=== PATIENT | female | born 1945 | race Caucasian/White ===

== ENCOUNTER 2024-07-20 07:16 | Inpatient (IN) | payer MEDICARE, OTHER ==
[2024-07-15 10:51] LABS: BILIRUBIN,URINE NEGATIVE (Neg); CLARITY,URINE CLEAR (Clear); COLOR,URINE YELLOW (Yellow); GLUCOSE, URINE NEGATIVE (Neg); KETONES,URINE NEGATIVE (Neg); LEUKOCYTE ESTERASE ,URINE NEGATIVE (Neg); NITRITES, URINE NEGATIVE (Neg); OCCULT BLOOD,URINE NEGATIVE (Neg); PH,URINE 6.5 (4.8-8.0); PROTEIN,URINE NEGATIVE (Neg); UROBILINOGEN,URINE 0.2 E.U/dL (0.2-1.0)
[2024-07-15 10:52] LABS: BASOPHILS % (AUTO) 0.7 % (0-1); EOSINOPHILS # (AUTO) 0.2 X10'3 (0-0.9); EOSINOPHILS % (AUTO) 2.5 % (0-6); LYMPHOCYTES # (AUTO) 0.6 X10'3 (1.1-4.8); LYMPHOCYTES % (AUTO) 8.9 % (21-51); MEAN CORPUSCULAR HGB CONC 32.4 g/dL (33.0-36.5); MEAN CORPUSCULAR VOLUME 92.6 FL (78-98); MEAN PLATELET VOLUME 8.1 FL (7.4-10.4); MONOCYTES # (AUTO) 0.5 X10'3 (0-0.9); MONOCYTES % (AUTO) 7.5 % (2-12); NEUTROPHILS # (AUTO) 5.2 X10'3 (1.8-7.7); NEUTROPHILS % (AUTO) 80.4 % (42-75); PRE OP HEMATOCRIT 34.5 % (35.0-45.0); PRE OP HEMOGLOBIN 11.2 g/dL (12.0-16.0); PRE OP PLATELET COUNT 175 X10'3 (140-440); PRE OP WHITE BLOOD COUNT 6.4 10'3 (4.8-10.8); RED BLOOD COUNT 3.73 X10'6 (4.20-5.60); RED CELL DISTRIBUTION WIDTH 17.1 % (11.5-14.5)
[2024-07-15 11:14] LABS: UA COLLECTION TYPE CLN CATCH MIDSTREAM
[2024-07-15 11:21] LABS: ALBUMIN 3.6 G/DL (3.4-5.0); ALKALINE PHOSPHATASE 87 IU/L (46-116); BLOOD UREA NITROGEN 16 MG/DL (7-18); BUN/CREATININE RATIO 18.8 (10.0-20.0); CALCIUM 9.3 MG/DL (8.5-10.1); CHLORIDE 103 MMOL/L (99-107); CREATININE 0.85 MG/DL (0.40-0.90); PRE OP ALT 22 U/L (30-65); PRE OP ANION GAP 4 (8-16); PRE OP AST 13 U/L (10-37); PRE OP BILIRUB, TOTAL 0.6 MG/DL (0.0-1.0); PRE OP GLUCOSE 85 MG/DL (70-104); PRE OP POTASSIUM 4.8 MMOL/L (3.4-5.1); PRE OP SODIUM 139 MMOL/L (135-145); THYROID STIMULATING HORMONE 1.49 ulU/ml (0.34-4.50); TOTAL CARBON DIOXIDE 31.8 MMOL/L (24-32); TOTAL PROTEIN 7.1 G/DL (6.4-8.2); eGFR 65 ML/MIN
[2024-07-15 13:05] LABS: PRE OP INR 1.1 INR; PRE OP PROTIME 11.2 SECONDS (9.0-12.0)
[~2024-07-20] VITALS: Ht 152.4 cm; Wt 76.9 kg
[2024-07-20] VITALS (25 sets, daily range): BP systolic 100–138; BP diastolic 33–86; PULSE 54–94; RESP 13–18; TEMP 96.1–97.3; O2SAT 90–100
[~2024-07-20 07:16] MED LIST: APIX5TAB3 PO; ATOR10TA70 PO; DICL100G59 TOP; DICL100T85 PO; DILT60TA35 PO; FIBER PO; FLEC50TA10 PO; FOLI1TAB27 PO; GABA-1405 PO; HYDR200T73 PO; LEVO100T46 PO; LOSA100T58 PO; METH2.5T PO; OSC500T PO; PANT40TA54 PO; POTA-208 PO; PRED1TAB PO; ondansetron/PF 4mg/2ml inj IV PRN; protamine sulfate 10mg/ml inj. ONE
[2024-07-20] MEDS: ringers solution, lacted 1,000 ML IV SCH ×2 (08:19→08:20)
[2024-07-20] MEDS: famotidine 20mg tablet PO ONE (08:19)
[2024-07-20] MEDS ORDERED: ondansetron/PF 4mg/2ml inj IV PRN ×2 (08:20→10:55)
[2024-07-20] MEDS ORDERED: meperidine/PF 25mg/ml syringe IV PRN (08:20)
[2024-07-20] MEDS ORDERED: proCHLORperazine 10 MG/2 ml inj IV PRN ×2 (08:20→10:55)
[2024-07-20] MEDS ORDERED: fentaNYL/PF 50MCG/1 ML 2ML syringe IV PRN ×2 (08:20)
[2024-07-20] MEDS ORDERED: labetalol 20mg/4ml (5mg/ml) syringe IV PRN ×2 (08:20→10:55)
[2024-07-20] MEDS ORDERED: HYDROmorphone/PF 0.2 MG/ML SYRINGE IV PRN (08:20)
[2024-07-20] MEDS: acetaminophen 1,000mg/100ml IV 100 ML IV ONE (08:20)
[2024-07-20] MEDS ORDERED: hydrALAZINE 20mg/ml inj. IV PRN ×2 (08:20→10:55)
[2024-07-20] MEDS ORDERED: VANCOMYCIN 1,500MG inj. 1,500 MG in normal saline 500ml IV soln 300 ML IV SCH (08:50)
[2024-07-20] MEDS ORDERED: iohexol 350MG/ML 100ml bottle IV ONE (09:36)
[2024-07-20] MEDS ORDERED: sevoflurane 250ml liquid IH ONE (09:40)
[2024-07-20] MEDS ORDERED: fentaNYL/PF 50MCG/1 ML 2ML syringe ONE (09:55)
[2024-07-20] MEDS ORDERED: midazolam 1 mg/ML 2ml injection ONE (10:13)
[2024-07-20] MEDS ORDERED: heparin 1,000unit/ml 10ml vial 10 ML ONE (10:14)
[2024-07-20] MEDS ORDERED: ceFAZolin 1000mg inj ONE ×2 (10:14)
[2024-07-20] MEDS ORDERED: LIDOcaine 2% (20mg/ml) 5ml vial ONE (10:14)
[2024-07-20] MEDS ORDERED: propofol inj 20 ML IV ONE (10:14)
[2024-07-20] MEDS ORDERED: ondansetron/PF 4mg/2ml inj ONE (10:17)
[2024-07-20] MEDS ORDERED: dexamethasone sod phosphate 4mg/ml inj. ONE (10:17)
[2024-07-20] MEDS ORDERED: magnesium sulf-water 4G/100mL 100 ML IV PRN (10:55)
[2024-07-20] MEDS ORDERED: potassium Cl 20mEq/100mL bag 100 ML IV PRN (10:55)
[2024-07-20] MEDS ORDERED: diphenhydrAMINE 25mg capsule PO PRN (10:55)
[2024-07-20] MEDS ORDERED: potassium Cl 40MEQ/1/2NS 520ml 520 ML IV PRN (10:55)
[2024-07-20] MEDS ORDERED: pantoprazole 40mg Tablet.DR PO PRN (10:55)
[2024-07-20] MEDS ORDERED: potassium CL 10mEq/100ml bag 100 ML IV PRN (10:55)
[2024-07-20] MEDS ORDERED: ALPRAZolam 0.25mg tablet PO PRN (10:55)
[2024-07-20] MEDS ORDERED: docusate sod 100mg capsule PO PRN (10:55)
[2024-07-20] MEDS ORDERED: potassium Cl 40MEQ/270ML bag 250 ML IV PRN (10:55)
[2024-07-20] MEDS ORDERED: potassium Cl 20 mEq SR tablet PO PRN (10:55)
[2024-07-20] MEDS: normal saline 1000ml 1,000 ML IV SCH (10:55)
[2024-07-20] MEDS ORDERED: magnesium sulf-water 2g/50mL 50 ML IV PRN (10:55)
[2024-07-20] MEDS: sod chloride 0.9% 10ml flush syringe IV SCH (16:00)
[2024-07-20] MEDS: VANCOMYCIN 1GM 200ML H20 (PEG) 200 ML IV SCH (21:18)
[2024-07-20] MEDS: gabapentin 400mg capsule PO ONE (23:38)
[2024-07-20] MEDS: acetaminophen 325mg tablet PO PRN (23:40)
[2024-07-21 02:00] VITALS: BP 106/42; PULSE 54; RESP 18; TEMP 97.4; O2SAT 90
[2024-07-21 06:00] VITALS: BP 111/46; PULSE 60; RESP 18; TEMP 96.3; O2SAT 60
[2024-07-21 06:54] LABS: PROTHROMBIN TIME 10.9 SECONDS (9.0-12.0)
[2024-07-21 07:14] LABS: BASOPHILS % (AUTO) 0.1 % (0-1); EOSINOPHILS % (AUTO) 0 % (0-6); HEMATOCRIT 29.7 % (35.0-45.0); HEMOGLOBIN 9.6 g/dl (12.0-16.0); LYMPHOCYTES # (AUTO) 0.4 X10'3 (1.1-4.8); MEAN CORPUSCULAR HEMOGLOBIN 30.5 PG (27.0-31.0); MEAN CORPUSCULAR HGB CONC 32.2 g/dL (33.0-36.5); MEAN CORPUSCULAR VOLUME 94.8 FL (78-98); MEAN PLATELET VOLUME 8.9 FL (7.4-10.4); MONOCYTES # (AUTO) 0.5 X10'3 (0-0.9); MONOCYTES % (AUTO) 6.6 % (2-12); NEUTROPHILS # (AUTO) 6.4 X10'3 (1.8-7.7); NEUTROPHILS % (AUTO) 88.3 % (42-75); PLATELET COUNT 172 X10'3 (140-440); RED BLOOD COUNT 3.13 X10'6 (4.20-5.60); RED CELL DISTRIBUTION WIDTH 17.2 % (11.5-14.5); WHITE BLOOD COUNT 7.2 X10'3 (4.5-11.0)
[2024-07-21 07:21] LABS: ALANINE AMINOTRANSFERASE 16 U/L (12-78); ALBUMIN 2.8 G/DL (3.4-5.0); ALKALINE PHOSPHATASE 74 IU/L (46-116); ANION GAP 8 (8-16); ASPARTATE AMINO TRANSFERASE 11 U/L (10-37); BILIRUBIN,TOTAL 0.4 MG/DL (0.1-1.0); BLOOD UREA NITROGEN 17 MG/DL (7-18); BUN/CREATININE RATIO 23.3 (10.0-20.0); CALCIUM 8.8 MG/DL (8.5-10.1); CHLORIDE 108 MMOL/L (99-107); CREATININE 0.73 MG/DL (0.40-0.90); GLUCOSE 118 MG/DL (70-104); MAGNESIUM 2.2 MG/DL (1.5-2.4); POTASSIUM 4.2 MMOL/L (3.5-5.1); PRO BRAIN NATRIURETIC PEPTIDE 335 PG/ML (0-450); SODIUM 144 MMOL/L (135-145); TOTAL CARBON DIOXIDE 28.1 MMOL/L (24-32); TOTAL PROTEIN 5.6 G/DL (6.4-8.2); eCRCL 45 ML/MIN; eGFR 77 ML/MIN
[2024-07-21] MEDS: losartan 50mg tablet PO SCH (07:54)
[2024-07-21] MEDS: gabapentin 400mg capsule PO SCH (07:55)
[2024-07-21 08:00] VITALS: RESP 18; O2SAT 97
[2024-07-21] MEDS: diltiazem 30mg tablet PO SCH (08:00)
[2024-07-21] MEDS: potassium Cl 20 mEq SR tablet PO SCH (08:04)
[2024-07-21] MEDS: atorvastatin 10mg tablet PO SCH (08:04)
[2024-07-21] MEDS: pantoprazole 40mg Tablet.DR PO SCH (08:05)
[2024-07-21] MEDS: folic acid 1mg tablet PO SCH (08:05)
[2024-07-21] MEDS: levoTHYROXINE 100mcg tablet PO SCH (08:05)
[2024-07-21] MEDS: calcium carbonate 500mg tablet PO SCH (08:05)
[2024-07-21] MEDS: flecainide 50mg tablet PO SCH (09:58)
[2024-07-21] MEDS: predniSONE 1 mg tablet PO SCH (09:59)
[2024-07-21 10:15] VITALS: BP 99/57; PULSE 60; RESP 14; TEMP 98.1; O2SAT 98
[2024-07-21] MEDS: apixaban 5mg tablet PO SCH (10:42)
[2024-07-21] MEDS: hydroxychloroquine 200mg tablet PO SCH (10:42)
[2024-07-21] MEDS ORDERED: diltiazem 30mg tablet PO SCH (21:00)
[2024-07-24] MEDS ORDERED: methoTREXATE 2.5mg tablet PO SCH (08:00)
== END 2024-07-21 15:06 | disposition home or self-care (01) | DRG 274 ==
LOC: PAS IN 07:16 → PCU 3S 12:49
PROVIDERS: ADMIT Student in an Organized Health Care Education/Training Program; ATTEND Student in an Organized Health Care Education/Training Program
PROC: 03HY32Z Insertion of Monitoring Device into Upper Artery, Percutaneous Approach (ICD-10-PCS; 2024-07-20)
PROC: B24BZZ4 Ultrasonography of Heart with Aorta, Transesophageal (ICD-10-PCS; 2024-07-20)
PROC: 02L73DK Occlusion of Left Atrial Appendage with Intraluminal Device, Percutaneous Approach (ICD-10-PCS; principal; 2024-07-20 09:40)
DX: I48.91 Unspecified atrial fibrillation (principal); Z00.6 Encounter for examination for normal comparison and control in clinical research program; E78.5 Hyperlipidemia, unspecified; I10 Essential (primary) hypertension; Z79.01 Long term (current) use of anticoagulants; Z88.5 Allergy status to narcotic agent; Z88.2 Allergy status to sulfonamides; Z88.1 Allergy status to other antibiotic agents; Z91.040 Latex allergy status
CPT/HCPCS: 33340; 36415; 71045; 71046; 76937; 80053; 81003; 82948; 83735; 83880; 84443; 85025; 85347; 85610; 85730; 86870; 86885; 86900; 86901; 86902; 86905; 86922; 87081; 93005; 93306; 93308; A4615; A4618; A6258; A6449; C1889; C1893; C1894; G0378; J0690; J1100; J1644; J2003; J2250; J2405; J2704; J2720; J3010; J3370; J3372; J7030; J7040; J7120; J7512; Q9967

== ENCOUNTER 2024-08-31 11:24 | Day surgery (SDC) | payer MEDICARE, OTHER ==
[2024-08-31] VITALS (10 sets, daily range): BP systolic 131–188; BP diastolic 58–108; PULSE 64–77; RESP 12–15; TEMP 97.9; O2SAT 95–98
[~2024-08-31] VITALS: Ht 152.4 cm; Wt 76.1 kg
[~2024-08-31 11:24] MED LIST changes: -DICL100T85 PO; -ondansetron/PF 4mg/2ml inj IV PRN; -protamine sulfate 10mg/ml inj. ONE
[2024-08-31 12:23] LABS: BASOPHILS % (AUTO) 0.8 % (0-1); EOSINOPHILS # (AUTO) 0.2 X10'3 (0-0.9); EOSINOPHILS % (AUTO) 3.3 % (0-6); HEMATOCRIT 33.1 % (35.0-45.0); HEMOGLOBIN 10.9 g/dl (12.0-16.0); LYMPHOCYTES # (AUTO) 0.8 X10'3 (1.1-4.8); LYMPHOCYTES % (AUTO) 14.3 % (21-51); MEAN CORPUSCULAR HEMOGLOBIN 30.1 PG (27.0-31.0); MEAN CORPUSCULAR HGB CONC 32.8 g/dL (33.0-36.5); MEAN CORPUSCULAR VOLUME 91.8 FL (78-98); MEAN PLATELET VOLUME 8.9 FL (7.4-10.4); MONOCYTES # (AUTO) 0.5 X10'3 (0-0.9); MONOCYTES % (AUTO) 9.2 % (2-12); NEUTROPHILS % (AUTO) 72.4 % (42-75); PLATELET COUNT 182 X10'3 (140-440); RED BLOOD COUNT 3.61 X10'6 (4.20-5.60); RED CELL DISTRIBUTION WIDTH 16.3 % (11.5-14.5); WHITE BLOOD COUNT 5.6 X10'3 (4.5-11.0)
[2024-08-31 12:25] LABS: ALBUMIN 3.7 G/DL (3.4-5.0); ANION GAP 5 (8-16); BLOOD UREA NITROGEN 15 MG/DL (7-18); CALCIUM 8.7 MG/DL (8.5-10.1); CHLORIDE 109 MMOL/L (99-107); CREATININE 0.94 MG/DL (0.40-0.90); GLUCOSE 87 MG/DL (70-104); POTASSIUM 3.8 MMOL/L (3.5-5.1); SODIUM 146 MMOL/L (135-145); TOTAL CARBON DIOXIDE 32.4 MMOL/L (24-32); eCRCL 35 ML/MIN; eGFR 57 ML/MIN
[2024-08-31 12:53] LABS: APTT 26 SECONDS (22-32); INR 1.1 INR
[2024-08-31 13:00] LABS: PROTHROMBIN TIME 11.8 SECONDS (9.0-12.0)
[2024-08-31] MEDS: fentaNYL/PF 50MCG/1 ML 2ML syringe IV ONE (15:24)
[2024-08-31] MEDS: MIDAZolam 1mg/ml 10ml vial IV ONE (15:24)
[2024-08-31] MEDS ORDERED: ASPI81TA52 PO (16:05)
[2024-08-31] MEDS ORDERED: CLOP75TA34 PO (16:05)
== END 2024-08-31 16:40 | disposition home or self-care (01) ==
LOC: SSTAY O 11:24
PROVIDERS: ATTEND Student in an Organized Health Care Education/Training Program
DX: I48.0 Paroxysmal atrial fibrillation (principal); I11.9 Hypertensive heart disease without heart failure; E78.00 Pure hypercholesterolemia, unspecified; E03.9 Hypothyroidism, unspecified; G62.9 Polyneuropathy, unspecified; M06.9 Rheumatoid arthritis, unspecified; Z85.3 Personal history of malignant neoplasm of breast; Z79.01 Long term (current) use of anticoagulants; Z79.890 Hormone replacement therapy; Z79.899 Other long term (current) drug therapy; Z90.49 Acquired absence of other specified parts of digestive tract; Z90.710 Acquired absence of both cervix and uterus; Z90.89 Acquired absence of other organs; Z96.643 Presence of artificial hip joint, bilateral; Z98.890 Other specified postprocedural states; Z88.2 Allergy status to sulfonamides; Z88.5 Allergy status to narcotic agent; Z88.8 Allergy status to other drugs, medicaments and biological substances; Z82.49 Family history of ischemic heart disease and other diseases of the circulatory system
CPT/HCPCS: 36415; 80048; 85025; 85610; 85730; 93325; A6258; A6402; C8925; J2250; J3010; J7030; 93312; A6449